=== PATIENT | female | born 1970 | race Caucasian/White ===

== ENCOUNTER 2019-07-31 10:34 | Outpatient (RCR) | payer BC, SELFPAY | END 2019-08-03 16:00 | disposition home or self-care (01) | LOC: ONCMED 10:34 | PROVIDERS: Family Provider Physician Assistant Medical; Visit Provider Internal Medicine Medical Oncology | DX: Z51.11 Encounter for antineoplastic chemotherapy (principal); C56.2 Malignant neoplasm of left ovary; J91.0 Malignant pleural effusion; C78.6 Secondary malignant neoplasm of retroperitoneum and peritoneum; F41.8 Other specified anxiety disorders; R97.1 Elevated cancer antigen 125 [CA 125]; Z99.81 Dependence on supplemental oxygen; Z17.0 Estrogen receptor positive status [ER+]; Z79.01 Long term (current) use of anticoagulants; Z86.711 Personal history of pulmonary embolism; Z90.722 Acquired absence of ovaries, bilateral; Z90.710 Acquired absence of both cervix and uterus | CPT/HCPCS: 80053; 81001; 85025; 96361; 96365; 96367 ×2; 96413; 96417; 99211; 99214; J1100 ×2; J1642 ×3; J2469; J3490; J7050; J9035; J9201 ==

== ENCOUNTER → 2019-08-12 | Outpatient (CLI) | payer SELFPAY | PROVIDERS: Family Provider Physician Assistant Medical; Visit Provider Internal Medicine Medical Oncology | DX: C56.2 Malignant neoplasm of left ovary (principal); C78.6 Secondary malignant neoplasm of retroperitoneum and peritoneum; J91.0 Malignant pleural effusion; J18.8 Other pneumonia, unspecified organism; I10 Essential (primary) hypertension; N60.12 Diffuse cystic mastopathy of left breast; N60.11 Diffuse cystic mastopathy of right breast; F41.8 Other specified anxiety disorders; Z92.21 Personal history of antineoplastic chemotherapy; Z79.899 Other long term (current) drug therapy; Z86.711 Personal history of pulmonary embolism; Z79.01 Long term (current) use of anticoagulants | CPT/HCPCS: 99214 ==

== ENCOUNTER 2019-08-18 16:29 | Outpatient (RCR) | payer SELFPAY | END 2019-08-26 00:01 | LOC: ONCMED 16:29 | PROVIDERS: Family Provider Physician Assistant Medical; Visit Provider Nurse Practitioner | DX: C56.2 Malignant neoplasm of left ovary (principal); J91.0 Malignant pleural effusion; C78.6 Secondary malignant neoplasm of retroperitoneum and peritoneum; E86.0 Dehydration; R06.02 Shortness of breath; R11.0 Nausea; R97.1 Elevated cancer antigen 125 [CA 125]; R53.1 Weakness; N60.19 Diffuse cystic mastopathy of unspecified breast; F41.8 Other specified anxiety disorders; D64.9 Anemia, unspecified; I10 Essential (primary) hypertension; Z86.711 Personal history of pulmonary embolism; Z79.01 Long term (current) use of anticoagulants; Z90.710 Acquired absence of both cervix and uterus; Z79.51 Long term (current) use of inhaled steroids; Z79.899 Other long term (current) drug therapy | CPT/HCPCS: 36430; 71046; 80053; 85025; 86304; 86850; 86900; 86901; 86920 ×2; 96361; 96365; 96367; 96374; 96375 ×2; 99214; J1100; J1642 ×2; J1940 ×2; J2405; J3490; J7050; P9016 ×2 ==